=== PATIENT | female | born 1955 | race Caucasian/White ===

== ENCOUNTER 2020-10-02 04:33 | Emergency (ER) | payer OTHER ==
--- NOTE | 2020-10-02 05:19 | EDM.PDOC ---
ED HPI GENERAL MEDICAL PROBLEM - General Chief Complaint: Genitourinary Problem Stated Complaint: BLADDER INFECTION Time Seen by Provider: 10/02/20 05:00 Source of Information: Reports: Patient History Limitations: Reports: No Limitations - History of Present Illness INITIAL COMMENTS - FREE TEXT/NARRATIVE: Patient presented to the ED because of dysuria, urgency and frequency which started today. There is no fever/chills, N/V or flank pain Vaginal Pain Score (Numeric/FACES): 8 - Related Data Allergies Allergy/AdvReac Type Severity Reaction Status Date / Time No Known Allergies Allergy Verified 10/02/20 05:04 Home Meds: Home Meds Fluticasone Propionate [Flonase] 1 spray NASBOTH DAILY 10/02/20 [History] Phenazopyridine HCl [Pyridium] 100 mg PO BID #6 tablet 10/02/20 [Rx] Sulfamethoxazole/Trimethoprim [Bactrim Ds Tablet] 1 each PO BID #6 tablet 10/02/20 [Rx] estradioL [Estrace Vaginal] 1 applic VAG BELL 10/02/20 [History] ED ROS GENERAL - Review of Systems Review Of Systems: See Below Constitutional: Reports: No Symptoms HEENT: Reports: No Symptoms Respiratory: Reports: No Symptoms Cardiovascular: Reports: No Symptoms Endocrine: Reports: No Symptoms GI/Abdominal: Reports: No Symptoms : Reports: Dysuria, Frequency, Urgency Musculoskeletal: Reports: No Symptoms Skin: Reports: No Symptoms ED EXAM, RENAL/ - Physical Exam Exam: See Below Exam Limited By: No Limitations General Appearance: Alert, No Apparent Distress Ears: Normal External Exam, Normal Canal, Hearing Grossly Normal Nose: Normal Inspection, Normal Mucosa, No Blood Throat/Mouth: Normal Inspection, Normal Lips, Normal Teeth Head: Atraumatic, Normocephalic Neck: Normal Inspection, Supple, Non-Tender Respiratory/Chest: No Respiratory Distress, Lungs Clear, Normal Breath Sounds Cardiovascular: Normal Peripheral Pulses, Regular Rate, Rhythm, No Edema GI/Abdominal: Normal Bowel Sounds, Soft, Non-Tender, No Organomegaly (Female) Exam: Other (suprapubic T) Course - Vital Signs Text/Narrative:: Septra DS 1 PO x1 Pyridium 100 mg PO x1 Last Recorded V/S: Last Vital Signs Temp 37.0 C 10/02/20 04:55 Pulse 77 10/02/20 04:55 Resp 18 10/02/20 04:55 BP 115/70 10/02/20 04:55 Pulse Ox 97 10/02/20 04:55 - Orders/Labs/Meds Orders: Active Orders 24 hr Category Date Time Status CULTURE URINE [RM] Stat Lab 10/02/20 04:58 Received Labs: Laboratory Tests 10/02/20 Range/Units 04:58 Urine Color Yellow (YELLOW) Urine Appearance Cloudy (CLEAR) Urine pH 5.0 (5.0-6.5) Ur Specific [place] 1.000 L (1.010-1.025) Urine Protein Trace (NEGATIVE) mg/dL Urine Glucose (UA) Normal (NORMAL) mg/dL Urine Ketones 15 H (NEGATIVE) mg/dL Urine Occult Blood Large H (NEGATIVE) Urine Nitrite Negative (NEGATIVE) Urine Bilirubin Negative (NEGATIVE) Urine Urobilinogen Normal (NEGATIVE) mg/dL Ur Leukocyte Esterase Large H (NEGATIVE) Urine RBC 5-10 H (0-5) Urine WBC >100 H (0-5) Ur Squamous Epith Cells Moderate H (NS,R,O) Urine Bacteria Moderate H (NS) Meds: Medications Discontinued Medications Generic Name Dose Route Start Last Admin Trade Name Freq PRN Reason Stop Dose Admin Phenazopyridine HCl 95 mg 10/02/20 05:20 10/02/20 05:27 Phenazopyridine 95 Mg Tab PO 10/02/20 05:21 95 mg NOW STA Administration Trimethoprim/Sulfamethoxazole 1 tab 10/02/20 05:20 10/02/20 05:27 Sulfamethoxazole/Trimethoprim 800-160 Mg Tab PO 10/02/20 05:21 1 tab ONETIME ONE Administration Departure - Departure Time of Disposition: 05:30 Disposition: Home, Self-Care 01 Condition: Good Clinical Impression: UTI (urinary tract infection) - Discharge Information Prescriptions: Sulfamethoxazole/Trimethoprim [Bactrim Ds Tablet] 1 each PO BID #6 tablet Phenazopyridine HCl [Pyridium] 100 mg PO BID #6 tablet Instructions: Phenazopyridine tablets, Urinary Tract Infection, Adult, [id number], Sulfamethoxazole; Trimethoprim, [id number] tablets Referrals: PCP,None [Primary Care Provider] - Forms: ED Department Discharge Additional Instructions: Please read discharge instructions on UTI Increase oral fluids Take Septra DS twice daily for 3 days Pyridium 100 mg twice daily for 3 days Follow up as needed Sepsis Event Note (ED) - Evaluation Sepsis Screening Result: No Definite Risk - Focused Exam Vital Signs: Vital Signs Temp Pulse Resp BP Pulse Ox 10/02/20 04:55 37.0 C 77 18 115/70 97 - My Orders Last 24 Hours: My Active Orders 10/02/20 04:58 CULTURE URINE [RM] Stat - Assessment/Plan Last 24 Hours: My Active Orders 10/02/20 04:58 CULTURE URINE [RM] Stat
[2020-10-02] MEDS ORDERED: Phenazopyridine 95 MG Tab PO STA (05:20)
[2020-10-02] MEDS ORDERED: Sulfamethoxazole/Trimethoprim 800-160 MG Tab PO ONE (05:20)
== END 2020-10-02 05:32 | disposition home or self-care (01) ==
LOC: FB.ED 04:33
DX: N39.0 Urinary tract infection, site not specified (principal)
CPT/HCPCS: 81001; 87086; 87088; 87186; 99283; A9270-GY

== ENCOUNTER 2021-01-03 12:10 | Emergency (ER) | payer OTHER ==
--- NOTE | 2021-01-03 13:23 | EDM.PDOC ---
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 [employer], 6-7 children, 14 grandchildren no previous sutures except c/s - Related Data Allergies Allergy/AdvReac Type Severity Reaction Status Date / Time No Known Allergies Allergy Verified 10/02/20 05:04 Home Meds: Home Meds Fluticasone Propionate [Flonase] 1 spray NASBOTH DAILY 10/02/20 [History] Phenazopyridine HCl [Pyridium] 100 mg PO BID #6 tablet 10/02/20 [Rx] Sulfamethoxazole/Trimethoprim [Bactrim Ds Tablet] 1 each PO BID #6 tablet 10/02/20 [Rx] estradioL [Estrace Vaginal] 1 applic VAG BELL 10/02/20 [History] Past Medical History HEENT History: Reports: Sinusitis, Other (See Below) Other HEENT History: dry eyes Gastrointestinal History: Reports: None Genitourinary History: Reports: UTI, Recurrent 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 History: [id number] Musculoskeletal History: Reports: Arthritis Neurological History: Reports: Other (See Below) Other 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 Hematologic History: Reports: Iron Deficiency - Infectious Disease History Infectious Disease History: Reports: Chicken Pox - Past Surgical History HEENT Surgical History: Reports: Naso-Sinus Surgery GI Surgical History: Reports: Colonoscopy Neurological Surgical History: Reports: None Musculoskeletal Surgical History: Reports: None Social & Family History - Family History Family Medical History: No Pertinent Family History - Caffeine Use Caffeine Use: Reports: Coffee ED ROS GENERAL - Review of Systems Review Of Systems: See Below Constitutional: Reports: No Symptoms HEENT: Reports: No Symptoms Respiratory: Reports: No Symptoms Cardiovascular: Reports: No Symptoms Endocrine: Reports: No Symptoms GI/Abdominal: Reports: No Symptoms : Reports: No Symptoms Musculoskeletal: Reports: No Symptoms Skin: Reports: Wound Neurological: Reports: No Symptoms Psychiatric: Reports: No Symptoms Hematologic/Lymphatic: Reports: No Symptoms Immunologic: Reports: No Symptoms ED EXAM, SKIN/RASH Exam: See Below Text/Narrative:: R forehead with 3 cm linear lac just above eyebrow and extending 1 cm beyond lateral margin, 5 mm gap, there is a second 0.5 cm lac above the first that has 3 mm gap and was oozing, ecchymosis noted of suprorbital ridge teacher friend chose to remain in room 1% lido with epi with #30 needle, local, complete analgesia, cleaned with gauze and NS x 10, moderate oozing, 4-0 Ethilon x 5 for larger lac and 1 sutures for smaller one, good apposition margins, tolerated well Exam Limited By: No Limitations General Appearance: Alert, WD/WN, No Apparent Distress Course - Re-Assessments/Exams Free Text/Narrative Re-Assessment/Exam: 01/03/21 13:23 repaired without difficulty, should heal with only a faint white line Adacel given Departure - Departure Time of Disposition: 13:21 Disposition: Home, Self-Care 01 Condition: Good Clinical Impression: Laceration of forehead, Contusion of forehead - Discharge Information *PRESCRIPTION DRUG MONITORING PROGRAM REVIEWED*: Not Applicable *COPY OF PRESCRIPTION DRUG MONITORING REPORT IN PATIENT KARLI: Not Applicable Instructions: Laceration Care, Adult, Contusion Referrals: Stephani Perales NP [Primary Care Provider] - Additional Instructions: Keep clean and dry. Leave dressing on overnight. May replace if desired. Avoid rubbing or touching. May shower today. May work tomorrow. For discomfort, if needed, take ibuprofen 200 mg 2 tabs and acetaminophen 325 mg 3 tabs 4 times a day for one day. May use ice for 10 minutes every 2 hours today as needed. See your doctor in 5 days to remove sutures. While infection is unlikely, see a physician the same day for any increase in redness, swelling, pain, warmth, fever or drainage. Call or return to ED as needed.
[2021-01-03] MEDS ORDERED: Diphtheria,Pertussis(Acell),Tetanus Vaccine 0.5 ML Syringe IM ONE (13:24)
== END 2021-01-03 13:50 | disposition home or self-care (01) ==
LOC: FB.ED 12:10
DX: S01.81XA Laceration without foreign body of other part of head, initial encounter (principal); Z23 Encounter for immunization; W18.30XA Fall on same level, unspecified, initial encounter; Y93.6A Activity, physical games generally associated with school recess, summer camp and children
CPT/HCPCS: 12013; 90471; 90715; 99282-25